=== PATIENT | male | born 1985 | race Native Hawaiian/Other Pacific Islander ===

== ENCOUNTER 2020-02-26 15:03 | Outpatient (CLI) | payer OTHER | END 2020-02-26 19:13 | disposition home or self-care (01) | LOC: LAB 15:03 | DX: R07.9 Chest pain, unspecified (principal) | CPT/HCPCS: 84484 ==

== ENCOUNTER 2021-12-09 07:36 | Outpatient (CLI) | payer OTHER | END 2021-12-09 19:22 | disposition home or self-care (01) | LOC: CT 07:36 | PROVIDERS: ATTEND Physician Assistant | DX: R10.13 Epigastric pain (principal) | CPT/HCPCS: Q9963 ==